=== PATIENT | male | born 1965 | race Two or more races ===

== ENCOUNTER 2022-08-03 08:58 | Emergency (ER) | payer OTHER ==
[2022-08-03 09:08] VITALS: BP 160/82; PULSE 75; RESP 18; TEMP 97.5; BMI 30.2
[2022-08-03] MEDS ORDERED: KETOROLAC TROMETHAMINE 30 MG/1 ML VIAL IM ONE (09:52)
[2022-08-03] MEDS ORDERED: LIDOCAINE 5% TOPICAL PATCH TP ONE (09:52)
[2022-08-03] MEDS ORDERED: ACETAMINOPHEN 500 MG TABLET (FP) PO ONE (09:52)
[2022-08-03] MEDS ORDERED: diazePAM 5 MG TABLET PO ONE (09:52)
[2022-08-03] MEDS ORDERED: diazePAM 5 MG TABLET ONE (09:57)
[2022-08-03] MEDS ORDERED: KETOROLAC TROMETHAMINE 30 MG/1 ML VIAL ONE ×2 (09:57→09:58)
[2022-08-03] MEDS ORDERED: LIDOCAINE 5% TOPICAL PATCH ONE (09:57)
[2022-08-03] MEDS ORDERED: ACETAMINOPHEN 325 MG TABLET (FP) ONE (09:57)
[2022-08-03] MEDS ORDERED: oxyCODONE HCL 5 MG TABLET PO ONE (12:37)
[2022-08-03] MEDS ORDERED: oxyCODONE HCL 5 MG TABLET ONE (12:42)
[2022-08-03] MEDS ORDERED: LIDOCAINE PATCH REMOVAL MC ONE (22:00)
== END 2022-08-03 12:30 | disposition home or self-care (01) ==
LOC: JERFT 08:58 → JER 08:58 → JERFT 12:30
PROC: 3E0233Z Introduction of Anti-inflammatory into Muscle, Percutaneous Approach (ICD-10-PCS; principal; 2022-08-03)
DX: M54.41 Lumbago with sciatica, right side (principal)
CPT/HCPCS: 72100-TC-FY; 99284-25

== ENCOUNTER 2022-08-08 09:47 | Emergency (ER) | payer OTHER ==
[2022-08-08 10:17] VITALS: RESP 18; TEMP 98.1; BMI 30.2
[2022-08-08] MEDS ORDERED: KETOROLAC TROMETHAMINE 30 MG/1 ML VIAL IVPUSH ONE (11:36)
[2022-08-08] MEDS ORDERED: diazePAM 5 MG TABLET PO ONE (11:36)
[2022-08-08] MEDS ORDERED: DEXAMETHASONE SOD PHOSPHATE 10 MG/1 ML VIAL IVPUSH ONE (11:53)
[2022-08-08] MEDS ORDERED: diazePAM 5 MG TABLET ONE (13:07)
[2022-08-08] MEDS ORDERED: DEXAMETHASONE SOD PHOSPHATE 10 MG/1 ML VIAL ONE (13:07)
[2022-08-08] MEDS ORDERED: KETOROLAC TROMETHAMINE 30 MG/1 ML VIAL ONE (13:07)
[2022-08-08 14:17] LABS: BASO % 0.4 % (0-2.0); HEMATOCRIT 43.9 % (35.4-49); HEMOGLOBIN 14.3 GM/dL (11.7-16.9); LYMPH % 26.5 % (8-40); MCH 27.2 pg (25.7-33.7); MCHC 32.5 g/dl (32.0-35.9); MEAN CELL VOLUME 83.7 fl (80-96); MEAN PLT VOLUME 9.3 fl (7.5-11.1); MONO % 7.9 % (3.8-10.2); NEUT % 62.2 % (42.8-82.8); PLATELET COUNT 191 10^3/uL (134-434); RBC 5.24 M/mm3 (4.00-5.60); RDW 15.9 % (11.9-15.9); WHITE BLOOD COUNT 4.5 K/mm3 (4.0-10.0)
[2022-08-08 14:18] LABS: ALBUMIN 3.8 g/dl (3.4-5.0)
[2022-08-08 14:19] LABS: BLOOD UREA NITROGEN 14.8 mg/dL (7-18); CALCIUM 8.7 mg/dL (8.5-10.1)
[2022-08-08 14:22] LABS: CREATININE 0.8 mg/dL (0.55-1.3)
[2022-08-08 14:24] LABS: BILIRUBIN,TOTAL 0.6 mg/dL (0.2-1); TOT PROT 7.3 g/dl (6.4-8.2)
[2022-08-08 16:50] VITALS: BP 155/87; PULSE 68
== END 2022-08-08 18:53 | disposition home or self-care (01) ==
LOC: JER 09:47
PROC: 3E033GC Introduction of Other Therapeutic Substance into Peripheral Vein, Percutaneous Approach (ICD-10-PCS; principal; 2022-08-08)
DX: R53.1 Weakness (principal); M54.89 Other dorsalgia
CPT/HCPCS: 0241U-QW; 36415; 72148-TC; 80053; 85025; 99285-25; J1100

== ENCOUNTER 2023-06-19 10:37 | Inpatient (IN) | payer BC, OTHER ==
[2023-06-19] MEDS ORDERED: SODIUM CHLORIDE 1,000 ML IV STA (12:11)
[2023-06-19] MEDS ORDERED: ACETAMINOPHEN 1000 MG/100 ML BAG IVPB ONE (12:11)
[2023-06-19] MEDS ORDERED: ACETAMINOPHEN INJECTION 100 ML IVPB ONE (12:25)
[2023-06-19 12:59] LABS: HEMATOCRIT 43.3 % (35.4-49); HEMOGLOBIN 14.5 GM/dL (11.7-16.9); MCHC 33.5 g/dl (32.0-35.9); MEAN CELL VOLUME 80.5 fl (80-96); MEAN PLT VOLUME 8.7 fl (7.5-11.1); PLATELET COUNT 65 10^3/uL (134-434); RBC 5.38 M/mm3 (4.00-5.60); RDW 15.2 % (11.9-15.9)
[2023-06-19 13:02] LABS: EPI CELLS 9 /uL (0-25.1); HYALINE CASTS 1 /uL (0-3.1); URINE APPEARANCE CLEAR; URINE BACTERIA 1 /uL (0-1359); URINE BILIRUBIN NEGATIVE (NEGATIVE); URINE COLOR YELLOW; URINE GLUCOSE (UA) NEGATIVE (NEGATIVE); URINE KETONE NEGATIVE (NEGATIVE); URINE LEUK ESTERASE NEGATIVE (NEGATIVE); URINE NITRITE NEGATIVE (NEGATIVE); URINE PROTEIN 2+ (NEGATIVE); URINE RBC 28 /uL (0-23.9); URINE WBC 17 /uL (0-25.8); WHITE BLOOD COUNT 1.7 K/mm3 (4.0-10.0)
[2023-06-19 13:28] LABS: POTASSIUM 3.7 mmol/L (3.5-5.1)
[2023-06-19 13:30] LABS: CALCIUM 8.2 mg/dL (8.5-10.1)
[2023-06-19 13:31] LABS: ALBUMIN 3.5 g/dl (3.4-5.0); BLOOD UREA NITROGEN 6.9 mg/dL (7-18)
[2023-06-19 13:34] LABS: ANISOCYTOSIS 2+; MACROCYTOSIS 0
[2023-06-19 13:35] LABS: BILIRUBIN,TOTAL 0.5 mg/dL (0.2-1); TOT PROT 7.3 g/dl (6.4-8.2)
[2023-06-19] MEDS ORDERED: CEFEPIME HCL 1 GM VIAL (RESTRICTED TO ID) IVPB ONE (13:43)
[2023-06-19] MEDS ORDERED: CEFEPIME 1 GM/100 ML BAG IVPB ONE (14:35)
[2023-06-19 15:37] LABS: POTASSIUM 3.4 mmol/L (3.5-5.1)
[2023-06-19 15:39] LABS: CALCIUM 7.7 mg/dL (8.5-10.1)
[2023-06-19 15:40] LABS: BLOOD UREA NITROGEN 7.1 mg/dL (7-18)
[2023-06-19] MEDS: SODIUM CHLORIDE 1,000 ML IV SCH (15:51)
[2023-06-19] MEDS ORDERED: KCL 10 MEQ IVPB 10 MEQ/100 ML INFUS.BAG IVPB SCH (16:45)
[2023-06-19] MEDS ORDERED: POTASSIUM CHLORIDE ORAL LIQUID 20 MEQ/15 ML PO ONE (16:55)
[2023-06-19] MEDS ORDERED: POTASSIUM CHLORIDE ORAL LIQUID 20 MEQ/15 ML ONE ×2 (17:50→17:52)
[2023-06-19 19:07] LABS: INR 1.03 (0.83-1.09); PROTHROMBIN TIME (PATIENT) 11.9 SEC (9.7-13.0)
[2023-06-19 19:10] LABS: ACTIVATED PTT 40.3 SECONDS (25.2-36.5)
[2023-06-19 20:26] LABS: HIV INTERPRETATION NEGATIVE (NEGATIVE)
[2023-06-19] MEDS ORDERED: DOXYCYCLINE HYCLATE 100 MG VIAL ONE (20:54)
[2023-06-19] MEDS ORDERED: CEFEPIME 2 GM/100 ML BAG IVPB ONE (20:54)
[2023-06-19] MEDS: CEFEPIME 2 GM in DEXTROSE 5%-WATER 100 ML IVPB SCH (21:07)
[2023-06-19] MEDS: DOXYCYCLINE INJECTION 100 MG in DEXTROSE 5%-WATER 100 ML IVPB SCH (21:48)
[2023-06-19] MEDS: MELATONIN 1 MG TABLET PO SCH (21:55)
[2023-06-19] MEDS ORDERED: CEFEPIME 2 GM in DEXTROSE 5%-WATER 100 ML IVPB SCH (22:00)
[2023-06-19] MEDS ORDERED: CEFEPIME HCL 2 GM VIAL (RESTRICTED TO ID) IVPB SCH (22:00)
[2023-06-19] MEDS ORDERED: ACETAMINOPHEN 1000 MG/100 ML BAG IVPB PRN (22:23)
[2023-06-20] MEDS ORDERED: CEFEPIME 2 GM/100 ML BAG IVPB ONE ×3 (05:04→21:49)
[2023-06-20] MEDS: CEFEPIME 2 GM in DEXTROSE 5%-WATER 100 ML IVPB SCH ×3 (05:30→21:58)
[2023-06-20 07:24] LABS: HEMATOCRIT 38.6 % (35.4-49); HEMOGLOBIN 13.1 GM/dL (11.7-16.9); MCH 27.1 pg (25.7-33.7); MCHC 34.1 g/dl (32.0-35.9); MEAN CELL VOLUME 79.6 fl (80-96); MEAN PLT VOLUME 9.1 fl (7.5-11.1); PLATELET COUNT 45 10^3/uL (134-434); RBC 4.85 M/mm3 (4.00-5.60); RDW 15.2 % (11.9-15.9); WHITE BLOOD COUNT 2.3 K/mm3 (4.0-10.0)
[2023-06-20 07:53] LABS: POTASSIUM 3.9 mmol/L (3.5-5.1)
[2023-06-20 08:04] LABS: BLOOD UREA NITROGEN 7.1 mg/dL (7-18); CALCIUM 7.5 mg/dL (8.5-10.1); MAGNESIUM 1.7 mg/dL (1.8-2.4); PHOSPHOROUS 2.2 mg/dL (2.5-4.9)
[2023-06-20 08:06] LABS: BILIRUBIN,TOTAL 0.6 mg/dL (0.2-1); CREATININE 0.9 mg/dL (0.55-1.3); TOT PROT 6.3 g/dl (6.4-8.2)
[2023-06-20 08:35] LABS: ANISOCYTOSIS 0; HELMET CELLS 0; HOWELL-JOLLY BODIES 0; MACROCYTOSIS 0; OVALOCYTE 0; ROULEAU 0; SICKELED CELLS 0; TARGET CELLS 0; TEAR DROP CELLS 0; TOXIC GRANULATION 0
[2023-06-20] MEDS: DOXYCYCLINE INJECTION 100 MG in DEXTROSE 5%-WATER 100 ML IVPB SCH ×2 (11:31→13:02)
[2023-06-20] MEDS ORDERED: DOXYCYCLINE HYCLATE 100 MG VIAL ONE ×2 (12:22→21:43)
[2023-06-20] MEDS: SODIUM CHLORIDE 1,000 ML IV SCH ×2 (13:12→16:49)
[2023-06-20] MEDS ORDERED: MELATONIN 5 MG TABLETS ONE (21:43)
[2023-06-20] MEDS ORDERED: CEFEPIME 1 GM/100 ML BAG IVPB ONE (21:44)
[2023-06-20] MEDS: MELATONIN 1 MG TABLET PO SCH (21:58)
[2023-06-21] MEDS ORDERED: CEFEPIME 2 GM/100 ML BAG IVPB ONE ×2 (06:27→14:45)
[2023-06-21] MEDS: CEFEPIME 2 GM in DEXTROSE 5%-WATER 100 ML IVPB SCH ×3 (06:32→21:24)
[2023-06-21 08:43] LABS: HEMATOCRIT 40.7 % (35.4-49); HEMOGLOBIN 13.2 GM/dL (11.7-16.9); MCH 26.6 pg (25.7-33.7); MCHC 32.5 g/dl (32.0-35.9); MEAN CELL VOLUME 81.9 fl (80-96); MEAN PLT VOLUME 9.3 fl (7.5-11.1); RBC 4.97 M/mm3 (4.00-5.60); RDW 15.5 % (11.9-15.9); WHITE BLOOD COUNT 3.2 K/mm3 (4.0-10.0)
[2023-06-21 08:48] LABS: PLATELET COUNT 29 10^3/uL (134-434)
[2023-06-21 09:22] LABS: POTASSIUM 3.8 mmol/L (3.5-5.1)
[2023-06-21 09:25] LABS: ALBUMIN 2.9 g/dl (3.4-5.0); BLOOD UREA NITROGEN 9.7 mg/dL (7-18); CALCIUM 7.8 mg/dL (8.5-10.1)
[2023-06-21 09:28] LABS: CREATININE 0.7 mg/dL (0.55-1.3)
[2023-06-21 09:30] LABS: BILIRUBIN,TOTAL 0.7 mg/dL (0.2-1); TOT PROT 6.4 g/dl (6.4-8.2)
[2023-06-21 09:51] LABS: HELMET CELLS 0; HOWELL-JOLLY BODIES 0; OVALOCYTE 0; ROULEAU 0; SICKELED CELLS 0; TARGET CELLS 0; TEAR DROP CELLS 0; TOXIC GRANULATION 0
[2023-06-21] MEDS ORDERED: DOXYCYCLINE HYCLATE 100 MG VIAL ONE (10:24)
[2023-06-21] MEDS: DOXYCYCLINE INJECTION 100 MG in DEXTROSE 5%-WATER 100 ML IVPB SCH ×2 (10:30→21:23)
[2023-06-21 14:03] LABS: ANISOCYTOSIS 1+; MACROCYTOSIS 1+
[2023-06-21 19:44] VITALS: BMI 28.3
[2023-06-21] MEDS: MELATONIN 1 MG TABLET PO SCH (21:24)
[2023-06-22] MEDS: CEFEPIME 2 GM in DEXTROSE 5%-WATER 100 ML IVPB SCH ×3 (05:32→21:57)
[2023-06-22 08:38] LABS: HEMATOCRIT 39.6 % (35.4-49); HEMOGLOBIN 13.2 GM/dL (11.7-16.9); MCH 26.8 pg (25.7-33.7); MCHC 33.3 g/dl (32.0-35.9); MEAN CELL VOLUME 80.4 fl (80-96); MEAN PLT VOLUME 9.2 fl (7.5-11.1); RBC 4.92 M/mm3 (4.00-5.60); RDW 15.3 % (11.9-15.9)
[2023-06-22 09:00] LABS: PLATELET COUNT 36 10^3/uL (134-434)
[2023-06-22 09:03] LABS: POTASSIUM 4.3 mmol/L (3.5-5.1)
[2023-06-22 09:05] LABS: CALCIUM 8.3 mg/dL (8.5-10.1)
[2023-06-22 09:07] LABS: ALBUMIN 2.9 g/dl (3.4-5.0); BLOOD UREA NITROGEN 7.8 mg/dL (7-18)
[2023-06-22 09:09] LABS: CREATININE 0.9 mg/dL (0.55-1.3)
[2023-06-22 09:10] LABS: BILIRUBIN,TOTAL 0.6 mg/dL (0.2-1); TOT PROT 6.8 g/dl (6.4-8.2)
[2023-06-22 09:58] LABS: ANISOCYTOSIS 2+; MACROCYTOSIS 0; OVALOCYTE 1+
[2023-06-22] MEDS: DOXYCYCLINE INJECTION 100 MG in DEXTROSE 5%-WATER 100 ML IVPB SCH ×2 (10:03→22:34)
[2023-06-22 15:39] LABS: MAGNESIUM 2.3 mg/dL (1.8-2.4)
[2023-06-22 15:43] LABS: PHOSPHOROUS 3.1 mg/dL (2.5-4.9)
[2023-06-22 18:56] VITALS: RESP 18
[2023-06-22] MEDS: MELATONIN 1 MG TABLET PO SCH (22:03)
[2023-06-23] MEDS: CEFEPIME 2 GM in DEXTROSE 5%-WATER 100 ML IVPB SCH ×3 (05:13→22:37)
[2023-06-23] MEDS ORDERED: FLUCONAZOLE 100 MG TABLET (UD) PO SCH (10:00)
[2023-06-23] MEDS ORDERED: ACYCLOVIR 400 MG TABLET PO SCH (10:00)
[2023-06-23 10:21] LABS: BASO % 0.7 % (0-2.0); EOS % 1.9 % (0-4.5); HEMATOCRIT 43.4 % (35.4-49); LYMPH % 43.5 % (8-40); MCH 26.5 pg (25.7-33.7); MCHC 32.2 g/dl (32.0-35.9); MEAN CELL VOLUME 82.4 fl (80-96); MONO % 16.6 % (3.8-10.2); NEUT % 37.3 % (42.8-82.8); PLATELET COUNT 83 10^3/uL (134-434); RBC 5.27 M/mm3 (4.00-5.60); RDW 15.3 % (11.9-15.9); WHITE BLOOD COUNT 2.2 K/mm3 (4.0-10.0)
[2023-06-23 10:44] LABS: CHLORIDE 107 mmol/L (98-107); SODIUM 138 mmol/L (136-145)
[2023-06-23] MEDS: DOXYCYCLINE INJECTION 100 MG in DEXTROSE 5%-WATER 100 ML IVPB SCH (10:45)
[2023-06-23 10:49] LABS: ALBUMIN 3.3 g/dl (3.4-5.0); ANION GAP 9 mmol/L (4-13); CALCIUM 8.6 mg/dL (8.5-10.1); CO2 22 mmol/L (21-32); GLUCOSE,RANDOM 111 mg/dL (74-106); MAGNESIUM 2.2 mg/dL (1.8-2.4)
[2023-06-23 10:51] LABS: CREATININE 0.8 mg/dL (0.55-1.3); INR 1.02 (0.83-1.09); PROTHROMBIN TIME (PATIENT) 11.8 SEC (9.7-13.0); SGPT/ALT 89 U/L (13-61)
[2023-06-23 10:52] LABS: SGOT/AST 100 U/L (15-37)
[2023-06-23 10:53] LABS: BILIRUBIN,TOTAL 0.9 mg/dL (0.2-1); TOT PROT 7.4 g/dl (6.4-8.2)
[2023-06-23 10:54] LABS: ACTIVATED PTT 29.1 SECONDS (25.2-36.5); ALK PHOS 71 U/L (45-117)
[2023-06-23] MEDS: DOXYCYCLINE HYCLATE 100 MG CAPSULE PO SCH (17:57)
[2023-06-23] MEDS: MELATONIN 1 MG TABLET PO SCH (22:37)
[2023-06-24] MEDS: CEFEPIME 2 GM in DEXTROSE 5%-WATER 100 ML IVPB SCH ×2 (06:20→13:44)
[2023-06-24 08:44] LABS: BASO % 0.4 % (0-2.0); EOS % 2.5 % (0-4.5); HEMATOCRIT 40.6 % (35.4-49); HEMOGLOBIN 13.6 GM/dL (11.7-16.9); LYMPH % 32.1 % (8-40); MCH 27.2 pg (25.7-33.7); MCHC 33.6 g/dl (32.0-35.9); MEAN CELL VOLUME 80.7 fl (80-96); MEAN PLT VOLUME 9.9 fl (7.5-11.1); MONO % 19.1 % (3.8-10.2); NEUT % 45.9 % (42.8-82.8); PLATELET COUNT 110 10^3/uL (134-434); RBC 5.03 M/mm3 (4.00-5.60); RDW 15.4 % (11.9-15.9); WHITE BLOOD COUNT 3.1 K/mm3 (4.0-10.0)
[2023-06-24 08:55] LABS: CALCIUM 8.5 mg/dL (8.5-10.1)
[2023-06-24 08:56] LABS: ALBUMIN 3.1 g/dl (3.4-5.0); BLOOD UREA NITROGEN 9.2 mg/dL (7-18); MAGNESIUM 2.2 mg/dL (1.8-2.4)
[2023-06-24 08:58] LABS: CREATININE 0.9 mg/dL (0.55-1.3)
[2023-06-24 09:00] LABS: TOT PROT 6.9 g/dl (6.4-8.2)
[2023-06-24] MEDS: DOXYCYCLINE HYCLATE 100 MG CAPSULE PO SCH (10:47)
[2023-06-24 15:00] VITALS: BP 131/74; PULSE 65; TEMP 98.2
[2023-06-26 09:21] LABS: E.chaff HME IgG Negative (Neg:<1:64)
== END 2023-06-24 18:02 | disposition home or self-care (01) | DRG 872 ==
LOC: JER 10:37 → JERBED 13:43 → J8W 06-21 15:48
PROVIDERS: ADMIT Internal Medicine; ATTEND Nurse Practitioner Acute Care
DX: A41.89 Other specified sepsis (principal); M62.82 Rhabdomyolysis; E87.1 Hypo-osmolality and hyponatremia; R50.9 Fever, unspecified; B88.2 Other arthropod infestations; D69.6 Thrombocytopenia, unspecified; R50.81 Fever presenting with conditions classified elsewhere; D70.9 Neutropenia, unspecified; I10 Essential (primary) hypertension; E78.5 Hyperlipidemia, unspecified; E66.9 Obesity, unspecified; Z68.28 Body mass index [BMI] 28.0-28.9, adult; R79.89 Other specified abnormal findings of blood chemistry
CPT/HCPCS: 0241U-QW; 36415; 71046-TC-FY; 76700-TC; 80048; 80053; 81003; 82550; 82553; 82930; 83605; 83690; 83735; 84100; 84484; 85025; 85384; 85610; 85730; 86140; 86308; 86618; 86664; 86666; 86705; 86708; 86790; 87040; 87045; 87046; 87070; 87086; 87186; 87205; 87207; 87340; 87389; 87496; 87517; 87522; 87536; 87798; 87799; 87899; 88300-TC; 93005; 93010; 99285-25